=== PATIENT | female | born 1965 | race Caucasian/White ===

== ENCOUNTER → 2016-07-08 | Outpatient (CLI) | payer BC ==
--- NOTE | 2016-07-08 14:34 | MAMMOGRAPHY REPORT ---
BILATERAL DIGITAL DIAGNOSTIC MAMMOGRAM TOMOSYNTHESIS WITH CAD AND TARGETED LEFT ULTRASOUND: 7 CLINICAL HISTORY: 50-year-old woman presents for follow-up of probably benign clusters of microcalci fications in the right breast. Also annual bilateral screening exam. Strong family history of matthew st cancer = mother and sister. TECHNIQUE: Bilateral CC and MLO 2-D digital and tomosynthesis images, spot magnification right CC an d ML views were obtained. Current study was also evaluated with a Computer Aided Detection (CAD) sy stem. COMPARISON: Comparison is made to exams dated: 01/08/2016 mammogram, 07/04/2015 mammogram, 06/18/2015 mammogram, 06/15/2014 mammogram - [facility], 02/24/2013 mammogram, and 02/19/2012 ma mmogram. BREAST COMPOSITION: The tissue of both breasts is extremely dense, which lowers the sensitivity of mammography. FINDINGS: There are stable benign popcorn calcifications in the 12:00 posterior right breast. Clust ers of very faint punctate microcalcifications are again seen in the lateral right breast on the spo t magnification views. In particular, based on the current spot magnification right CC view, there are approximately 2 dominant clusters of microcalcifications that have a punctate and amorphous morp hology. When comparing back to prior exams including spot magnification views performed 02/03/2008, these might calcifications appear stable in number and configuration and given nearly 10 years of s tability are considered benign. No further close follow-up is needed at this time. No obvious new mass, focal area of architectural distortion or new calcifications are seen within the right breast. There is a 12 mm nodular asymmetry in the medial, middle one third of the left breast on the CC view , with possible borders posteriorly, which could represent a mass. Further evaluation with ultrasou nd was performed. No other obvious new mass, focal area of architectural distortion or suspicious c alcifications are seen in the left breast. Real-time high-resolution ultrasound was performed throughout the medial left breast. In the 9:00 a xis, 12 cm from the nipple, there is a lobulated isoechoic solid-appearing mass measuring 8.6 x 4.4 x 11.0 mm. This may possibly correlate with the mammographic finding and could represent a fibroade noma. However, an island of stromal fibrosis could appear similar. There are other nodular areas o f hypoechoic tissue throughout the remainder of the left lower inner quadrant and multiple areas of shadowing, limiting the sensitivity of ultrasound. In particular, another possible solid mass versu s normal dense tissue is identified in the 8:00 left breast, 4 cm from the nipple. IMPRESSION: ACR BI-RADS CATEGORY 0: INCOMPLETE EVALUATION: NEED ADDITIONAL IMAGING EVALUATION, TAR GETED ULTRASOUND ACR BI-RADS CATEGORY 0: INCOMPLETE EVALUATION: NEED ADDITIONAL IMAGING EVALUATION 1. Clusters of faint punctate microcalcifications in the right lateral breast appears stable based on spot magnification views dating back to 2007, therefore considered benign. Overall, no mammograp hic evidence of malignancy in the right breast. 2. There is an 11 mm nodular asymmetry versus possible obscured mass in the medial left breast, onl y seen on the CC view with possible sonographic correlate in the 9:00 axis. However, given the mult iple hypoechoic nodular areas throughout the left lower inner quadrant on ultrasound and shadowing f rom dense tissue the ultrasound exam is technically limited. Definitive characterization with a con trast-enhanced breast MRI is recommended to exclude the possibility of a suspicious enhancing mass, particularly given the strong family history of breast cancer = mother and sister. These results and recommendations were discussed with the patient at the time of the exam. Approximately 10% of breast cancers are not detected with mammography. A negative mammographic repor t should not delay biopsy if a clinically suggestive mass is present. Stephanie Orlando M.D. ay/:07/08/2016 12:36:19 Propulsion Generator Repairer: Akila SAHA)(Carter), [facility] letter sent: Addl Imaging 0 BI-RADS Code: ACR BI-RADS Category 0: Incomplete Evaluation: Need Additional Imaging Evaluation Ul trasound BI-RADS: ACR BI-RADS Category 0: Incomplete Evaluation: Need Additional Imaging Evaluation
== END | disposition home or self-care (01) ==
LOC: C.MAMM 10:29
PROVIDERS: ATTEND Family Medicine
DX: R92.0 Mammographic microcalcification found on diagnostic imaging of breast (principal); N64.89 Other specified disorders of breast

== ENCOUNTER → 2016-08-05 | Outpatient (CLI) | payer BC ==
[~2016-08-05] MED LIST: GADAVIST IV PRN; MethylPREDNISolone HOME PACK 16 MG TAB PO SCH
--- NOTE | 2016-08-06 14:04 | MAMMOGRAPHY REPORT ---
BREAST MRI OF BOTH BREASTS : 08/05/2016 CLINICAL HISTORY: Left medial breast asymmetry seen during a recent diagnostic workup, without a maribel ar sonographic correlate identified. Strong family history of breast cancer. COMPARISON: Comparison is made to exams dated: 07/08/2016 mammogram, 01/08/2016 mammogram, 06/15/2014 mammogram - [facility], 02/24/2013 mammogram, 06/18/2015 mammogram, and 07/04/2015 ma mmogram - [facility]. Technique: The patient was placed prone in a dedicated breast imaging coil. Precontrast axial T1-we ighted, axial T2-weighted fat saturation, and axial T1-weighted fat saturation images were obtained. After the administration of 7 mL of Gadavist IV contrast, sequential T1-weighted fat saturation im ages were obtained. Subtraction images were obtained of the dynamic contrast enhanced sequences, an d 3-D reformations were performed. The LiquidText software was used for kinetic analysis. The patient w as premedicated with steroids prior to the MRI due to a reported history of hives with prior MRI con trast. Findings: Right breast: There is marked background parenchymal enhancement, which reduces the sensitivity of the exam. Ther e is an enhancing 8 mm round mass in the right breast at 10:00 anterior to middle depth, which is T2 hyperintense and may represent a cyst cluster or fibroadenoma given that some of the internal compo nents are nonenhancing although second look ultrasound is recommended (series [id number] image 71). More inferiorly is a focal enhancing round 6 mm mass in the right breast at 9:00 middle depth, which dem onstrates no corresponding T2 hyperintensity and for which second look ultrasound is recommended (se padma [id number] image 76). Both of these masses demonstrate persistent kinetics. The remainder of the r ight breast demonstrates no suspicious enhancing masses or areas of abnormal non-mass enhancement. Left breast: There is marked background parenchymal enhancement, which reduces the sensitivity of the exam. Ther e are multiple scattered foci of enhancement which are felt to represent normal background parenchym al enhancement. There is an oval circumscribed enhancing 6 mm mass in the left breast at 11 to 12:0 0, which demonstrates a mixed kinetic pattern including washout kinetics and no corresponding T2 hyp erintensity (series [id number] image 47). Additionally, there is an enhancing 5 mm circumscribed mass in the left lower inner quadrant middle depth, which is not T2 hyperintense and demonstrates prominent ly persistent kinetics (series [id number] image 99). Recommend second look ultrasound for further evalua tion. An oval circumscribed T2 hyperintense, nonenhancing 7 mm mass is seen within the left breast at approximately 9 to 9:30 middle depth, which is consistent with a benign cyst and may correspond w ith the left medial breast asymmetry seen mammographically. No suspicious enhancing mass is seen to correspond with the left medial breast asymmetry. There is no evidence of axillary adenopathy. The chest wall structures are negative. Extramammary soft tissues are unremarkable. IMPRESSION: ACR BI-RADS CATEGORY 0: INCOMPLETE EVALUATION: NEED ADDITIONAL IMAGING EVALUATION 1. Benign 7 mm cyst in the left breast at 9 to 9:30, which likely corresponds with the mammographic asymmetry seen within the left medial breast. No suspicious enhancing mass is seen in the region o f the left medial breast mammographic asymmetry. 2. Marked background parenchymal enhancement, which reduces the sensitivity of the exam. Two masses within the right breast at 9 and 10:00 and two enhancing masses in the left breast at 11 to 12:00 a nd left lower inner quadrant, which may represent cyst clusters or fibroadenomas although second loo k ultrasound is recommended. If a corresponding suspicious abnormality is seen on ultrasound, then ultrasound-guided biopsy is recommended. If no corresponding abnormalities are seen on ultrasound, then recommend follow-up bilateral breast MRI in 6 months to confirm stability (45 minute time slot) . Ernestine Alvarez M.D. ah/:08/05/2016 16:31:56 Title I Paraprofessional: master machinist, [facility] BI-RADS Code: ACR BI-RADS Category 0: Incomplete Evaluation: Need Additional Imaging Evaluation
== END | disposition home or self-care (01) ==
LOC: C.MRI 07-31 08:56
PROVIDERS: ATTEND Family Medicine
DX: R92.0 Mammographic microcalcification found on diagnostic imaging of breast (principal); N60.02 Solitary cyst of left breast; N63 Unspecified lump in breast

== ENCOUNTER → 2017-04-07 | Outpatient (CLI) | payer BC ==
[~2017-04-07] MED LIST changes: -MethylPREDNISolone HOME PACK 16 MG TAB PO SCH
--- NOTE | 2017-04-08 13:45 | MAMMOGRAPHY REPORT ---
BILATERAL DIGITAL DIAGNOSTIC MAMMOGRAM TOMOSYNTHESIS WITH CAD AND TARGETED BILATERAL ULTRASOUND: 04/07 CLINICAL HISTORY: 51-year-old woman with multiple breast masses presents 6 month after biopsy of a do minant mass in the right 9:00 breast and one of the masses in the 12:00 left breast. She had a follo w-up breast MRI on the same day and please refer to a separate report for full detail. TECHNIQUE: Breast tomosynthesis in addition to standard 2D mammography was performed. Current study was also evaluated with a Computer Aided Detection (CAD) system. COMPARISON: Comparison is made to exams dated: 04/07/2017 breast MRI, 08/19/2016 mammogram, 08/19/2016 ul trasound biopsy, 08/19/2016 ultrasound, 08/05/2016 breast MRI, and 07/08/2016 mammogram - [facility]. BREAST COMPOSITION: The tissue of both breasts is extremely dense, which lowers the sensitivity of m ammography. FINDINGS: The parenchymal pattern is similar to prior mammograms, with diffuse nodularity bilaterally . There are stable ribbon-shaped biopsy marker clips in the right 9:00 breast and left 12:00 to 1:00 breast. There is a stable benign coarse calcification in the 12:00 posterior right breast, and a fe w scattered and loosely grouped punctate benign-appearing microcalcifications. No suspicious spicula juan or irregular mass, focal area of architectural distortion, new suspicious macrocalcifications or developing asymmetry is seen. Repeat targeted ultrasound was performed in both breasts to reassess the dominant solid appearing mas ses identified on prior ultrasound. In the 9:00 axis of the right breast, 2 cm from the nipple, ther e is a lobulated hypoechoic solid mass with internal biopsy marker clip, measuring 10.0 x 8.0 x 9.5 m m. In the 8:30 right breast, 4 cm from the nipple, there is a circumscribed hypoechoic solid paralle l mass measuring 5.7 x 4.3 x 6.3 mm. These right breast masses are unchanged comparing to the August 14 ultrasound, given slight differences in measuring technique. Multiple similar appearing lobulated and circumscribed hypoechoic solid masses are also again noted i n the left breast in particular in the 11:30 left breast, 7 cm from the nipple there is a bilobed lob ulated circumscribed solid mass measuring 10.3 x 5.5 x 6.7 mm. 2 smaller hypoechoic circumscribed ma sses are seen superficial to this mass measuring 5.5 x 7.0 and 4.8 x 5.2 mm. In the 12:00 left breas t, 8 cm from the nipple, another hypoechoic solid circumscribed mass is noted measuring 7.6 x 4.2 rig ht 10.8 mm. In the 12:00 left breast, 7 cm from the nipple, there is a similar appearing 8.1 x 3.5 m m mass, and numerous smaller masses in the 12:00 axis. In the 12:30 left breast, 4 cm from the nippl e, there is an isoechoic circumscribed solid mass measuring 11.1 x 5.8 x 7.2 mm. A benign anechoic s imple cyst measuring 10 mm in the 9:00 left breast, and an oval parallel circumscribed isoechoic mass in the 7:00 left breast, 2 cm from the nipple, measuring 7.8 x 2.9 x 7.4 mm. The remainder of the b reast parenchyma particularly in the far field is suboptimally evaluated due to diffuse shadowing fro m the patient's dense tissue. All of these masses will also be assessed on MRI which was performed o n the same day. Please refer to a separate report for full detail. IMPRESSION: ACR-BI-RADS CATEGORY 3: PROBABLY BENIGN, TARGETED ULTRASOUND ACR-BI-RADS CATEGORY 3: PRO BABLY BENIGN 1. Stable bilateral mammograms, including stable post biopsy changes in each breast, without definit e mammographic evidence of malignancy. 2. Stable sonographic appearance of solid lobulated and circumscribed masses in both breasts. Ultra sound-guided core biopsy of a solid mass in the 9:00 right breast and 12:00 left breast yielded benig n adenosis and overall benign pathology results. 3. Recommend bilateral tomosynthesis mammograms in one year. Pending MRI results may opt for one mo re follow-up ultrasound versus continued MRI follow-up to ensure stability of the multiple bilateral solid masses in the breasts. These results and recommendations were discussed with the patient at the time of the exam. Approximately 10% of breast cancers are not detected with mammography. A negative mammographic report should not delay biopsy if a clinically suggestive mass is present. Stephanie Orlando M.D. ay/:04/07/2017 16:25:42 Cracker Dough Mixer: Ruth Laguerre RT(R)(M), [facility] letter sent: Follow Up Recommended 3 BI-RADS Code: ACR-BI-RADS Category 3: Probably Benign Ultrasound BI-RADS: ACR-BI-RADS Category 3: Pr obably Benign
--- NOTE | 2017-04-08 13:45 | MAMMOGRAPHY REPORT ---
BREAST MRI OF BOTH BREASTS : 04/07/2017 CLINICAL HISTORY: 51-year-old woman with a family history of breast cancer presents for MRI follow-up in both breasts. She was initially noted to have innumerable masses in both breasts on MRI and prio r ultrasounds. Masses in the 9:00 right breast and 12:00 left breast were biopsied and yielded benig n adenosis and fibrocystic change. No carcinoma was identified. She presents for diagnostic mammogr am and ultrasound and also follow-up breast MRI to ensure stability of the masses. COMPARISON: Comparison is made to exams dated: 08/19/2016 mammogram, 08/19/2016 ultrasound biopsy, 017 ultrasound, 08/19/2016 ultrasound biopsy, 08/05/2016 breast MRI, and 07/08/2016 ultrasound - [facility]. TECHNIQUE: The patient was pretreated with steroids prior to the MRI for a contrast allergy Using a 1.5 Nohemy magnet and dedicated breast coil, multisequence axial images were obtained through the breasts. After uneventful IV administration of 8.5 mL of Gadavist, dynamic multiphase contrast-e nhanced axial images, and sagittal postcontrast were obtained. Temporal subtraction axial images and 3-D MIP images are provided. Everything was then reviewed on a 3-D workstation, [employer]. FINDINGS: Right breast: There is diffuse/marked nodular background enhancement. There is susceptibility artifa ct from a biopsy marker clip within one of the largest enhancing masses in the 9:00 middle to anterio r right breast. The mass is unchanged in size and appearance comparing to the prior MRI, measuring 1 1 mm. There are innumerable small masses versus nodular background enhancement throughout the remain ventura of the right breast, the vast majority of which demonstrate associated persistent kinetics which is a benign type curve. There is no focal area lacking nodular enhancement in the right breast or fo cash, regional or segmental area of suspicious washout kinetics that differ from the remainder of the breasts. Therefore although many solid masses are seen on ultrasound and may correspond, will consid er this nodular enhancement pattern probably benign as there is also no mass with spiculated, angular or irregular borders to suggest it is different from the rest or different from the biopsied adenosi s. Left breast: There is diffuse/marked nodular background enhancement. A new small area of susceptibil ity artifact is identified in the 12:00 middle one third of the left breast, denoting the area of jose or benign biopsy which yielded fibrocystic change and adenosis. Again, innumerable small masses vers us nodular background enhancement is seen throughout the left breast, similar in appearance to the ri ght. There is no focal, regional or segmental area of differing kinetics and overall uniform nodular background enhancement of the left breast. No singular spiculated, irregular or angular mass is moe ntified. No suspicious axillary lymphadenopathy bilaterally. IMPRESSION: ACR-BI-RADS CATEGORY 3: PROBABLY BENIGN New metallic biopsy markers are identified in the 12:00 left breast and 9:00 right breast, denoting t he areas of prior benign ultrasound-guided core biopsies. There is marked nodular background enhance ment versus innumerable masses in the breasts. The overall enhancement pattern is symmetric bilatera lly without focal, segmental or regional area of differing kinetics or a mass that is different in mo rphology from the remainder of the background. Therefore, would consider this pattern probably benig n and recommend a follow-up breast MRI to ensure stability. I would prefer follow-up MRI as opposed to ultrasound given the diffuse shadowing on ultrasound making it more difficult for accurate compari son of all of the masses, particularly in the far field. (It should be noted that the patient has a gadolinium allergy and needs to be pretreated with steroids prior to MRI and therefore would recommen d a follow-up breast MRI in 12 months, including pretreatment.) The patient will receive written notification of the results. Stephanie Orlando M.D. ay/:04/07/2017 22:04:40 Retail Business Development Manager: teacher adult education, [facility] letter sent: Follow Up Recommended 3 BI-RADS Code: ACR-BI-RADS Category 3: Probably Benign
== END | disposition home or self-care (01) ==
LOC: C.MRI 07:00
PROVIDERS: ATTEND Surgery
DX: R92.8 Other abnormal and inconclusive findings on diagnostic imaging of breast (principal); N63.10 Unspecified lump in the right breast, unspecified quadrant; N63.20 Unspecified lump in the left breast, unspecified quadrant